=== PATIENT | female | born 1965 | race Hispanic/Latino ===

== ENCOUNTER 2017-01-26 09:51 | Emergency (ER) | payer MEDICARE ==
[2017-01-26 10:35] LABS: Basophils % (Auto) 1.1 % (0.0-1.8); Eosinophils % (Auto) 0.7 % (0.0-4.3); Hematocrit 40.1 % (30.3-42.9); Hemoglobin 13.2 gm/dl (10.1-14.3); Mean Corpuscular HGB Conc 33 % (30-34); Mean Corpuscular Hemoglobin 29 pg (28-32); Mean Corpuscular Volume 87 fl (79-97); Platelet Count 328 K/mm3 (140-440); Red Blood Count 4.58 M/mm3 (3.65-5.03); Red Cell Distribution Width 13.9 % (13.2-15.2)
[2017-01-26 10:46] LABS: INR 0.96 (0.87-1.13)
[2017-01-26 10:47] LABS: Partial Thromboplastin Time 28.4 Sec. (24.2-36.6)
--- NOTE | 2017-01-26 11:10 | Emergency Department Report ---
ED Extremity Problem HPI - General Chief complaint: Extremity Injury, Lower Stated complaint: BLOOD CLOT RIGHT LEG Time Seen by Provider: 01/26/17 10:41 Source: patient, old records reviewed Mode of arrival: Ambulatory Limitations: No Limitations - History of Present Illness Initial comments: 51-year-old female presents to the emergency department patient has been seeing her primary care physician for this and was sent for an outpatient ultrasound 2 days ago. She states her pain has been getting worse and her leg. She describes aching pain that does not radiate. She states it is difficult to walk. She was started on hydrocodone and states that this takes the edge off of the pain. She followed up with her primary care physician this morning and was sent to the emergency department due to the results of the outpatient Doppler study. Review of the outpatient radiology report shows that the patient has a fairly extensive superficial venous thrombosis involving the greater saphenous vein beginning very close to the intersection with the common femoral vein, but not definitely extending into the common femoral vein. Patient is not currently on anticoagulation. She denies chest pain or difficulty breathing. There are no other complaints. MD Complaint: extremity pain -: Gradual, days(s) (5) Location: right, lower extremity History of Same: No -: Yes myalgia Radiation: none Severity scale (0 -10): 8 Quality: aching Consistency: constant Improves with: medication Worsens with: weight bearing, walking Associated Symptoms: denies other symptoms - Related Data Previous Rx's Medication Instructions Recorded Last Taken Type HYDROcodone/APAP 5-325 [[place] 1 each PO Q6HR PRN #30 tablet 01/26/17 Unknown Rx 5/325] Rivaroxaban [Xarelto] 15 mg PO BID #42 tablet 01/26/17 Unknown Rx Allergies Allergy/AdvReac Type Severity Reaction Status Date / Time nitrofurantoin Allergy Rash Verified 01/26/17 10:09 [From Macrobid] nitrofurantoin Allergy Rash Verified 01/26/17 10:09 macrocrystalline [From Macrobid] Sulfa (Sulfonamide Allergy Rash Verified 01/26/17 10:09 Antibiotics) ED Review of Systems ROS: Stated complaint: BLOOD CLOT RIGHT LEG Other details as noted in HPI Comment: All other systems reviewed and negative Respiratory: denies: shortness of breath Cardiovascular: denies: chest pain Musculoskeletal: as per HPI ED Past Medical Hx - Past Medical History Previous Medical History?: Yes Hx GERD: Yes Hx Headaches / Migraines: Yes Hx Psychiatric Treatment: Yes (Bipolar affective disorder,) Additional medical history: Adult onset hypothyroidism, Contact dermatitis, High cholesterol, Chronic constipation, Restless leg syndrome, Vitamin D deficiency, Obesity, Phlebitis - Surgical History Past Surgical History?: Yes Additional Surgical History: 1990, Bladder surgery 1994 - Family History Family history: no significant - Social History Smoking Status: Never Smoker Substance Use Type: Alcohol, Prescribed - Medications Home Medications: Home Medications Medication Instructions Recorded Confirmed Last Taken Type HYDROcodone/APAP 5-325 [[place] 1 each PO Q6HR PRN #30 tablet 01/26/17 Unknown Rx 5/325] Rivaroxaban [Xarelto] 15 mg PO BID #42 tablet 01/26/17 Unknown Rx ED Physical Exam - General Limitations: No Limitations General appearance: alert, in no apparent distress - Head Head exam: Present: atraumatic, normocephalic - Eye Eye exam: Present: normal appearance, PERRL, EOMI - ENT ENT exam: Present: normal exam, normal orophraynx, mucous membranes moist - Neck Neck exam: Present: normal inspection, full ROM. Absent: tenderness - Respiratory Respiratory exam: Present: normal lung sounds bilaterally. Absent: respiratory distress - Cardiovascular Cardiovascular Exam: Present: regular rate, normal rhythm, normal heart sounds - GI/Abdominal GI/Abdominal exam: Present: soft, normal bowel sounds. Absent: distended, tenderness - Extremities Exam Extremities exam: Present: normal inspection, full ROM, other (tenderness to palpation to the posterior right thigh.) - Neurological Exam Neurological exam: Present: alert, oriented X3. Absent: motor sensory deficit - Skin Skin exam: Present: warm, dry, intact ED Course Vital Signs 01/26/17 09:55 Temperature 97.5 F L Pulse Rate 96 H Respiratory 18 Rate Blood Pressure 131/87 O2 Sat by Pulse 96 Oximetry ED Medical Decision Making - Lab Data Result diagrams: 01/26/17 10:10 01/26/17 10:47 - Medical Decision Making Laboratory results reviewed and discussed with the patient. Technically, the patient's ultrasound shows a superficial venous thrombosis, but with the extent of this thrombosis as well as the proximity to the junction of the common femoral vein, the patient will be treated with anticoagulation. Patient given the option for inpatient admission versus outpatient treatment of her venous thrombus. Patient states she rather go home. Patient will be prescribed Xarelto and will be discharged home to follow up with her primary care physician. - Differential Diagnosis DVT, SVT Critical care attestation.: If time is entered above; I have spent that time in minutes in the direct care of this critically ill patient, excluding procedure time. ED Disposition Clinical Impression: Venous thromboembolism (VTE) Disposition: TO HOME OR SELFCARE Is pt being admited?: No Condition: Stable Instructions: Deep Venous Thrombosis (ED) Prescriptions: HYDROcodone/APAP 5-325 [[place] 5/325] 1 each PO Q6HR PRN #30 tablet PRN Reason: Pain Rivaroxaban [Xarelto] 15 mg PO BID #42 tablet Referrals: PRIMARY CARE, [Primary Care Provider] - 3-5 Days Time of Disposition: 12:25
[2017-01-26 11:34] LABS: Chloride 105.5 mmol/L (98-107); Potassium 3.5 mmol/L (3.6-5.0)
[2017-01-26 12:42] VITALS: BP 136/88
== END 2017-01-26 12:42 | disposition home or self-care (01) ==
LOC: ED 09:51
DX: I82.90 Acute embolism and thrombosis of unspecified vein (principal); K21.9 Gastro-esophageal reflux disease without esophagitis; G43.909 Migraine, unspecified, not intractable, without status migrainosus; F31.9 Bipolar disorder, unspecified
CPT/HCPCS: 36415; 80048; 85025; 85610; 85730; 99283